=== PATIENT | male | born 1950 | race Caucasian/White ===

== ENCOUNTER 2018-03-25 14:38 | Emergency (ER) | payer MEDICARE, OTHER ==
[~2018-03-25] VITALS: Ht 175.3 cm; Wt 109.0 kg
[~2018-03-25 14:38] MED LIST: ALFU10TA10 PO; DULO-31 PO; HCTZ PO; IPRA3AMP9 NEB; LORA0.5T PO; OXYCODONE PO; PRAV40TA3 PO; Symbicort INH; lutein PO; seroquel PO; vitamin D PO
[2018-03-25 14:41] VITALS: BP 140/80
[2018-03-25] MEDS ORDERED: TRAM50TA2 PO (14:58)
== END 2018-03-25 16:20 | disposition home or self-care (01) ==
LOC: ER 14:38
DX: M25.511 Pain in right shoulder (principal); J44.9 Chronic obstructive pulmonary disease, unspecified; Z88.0 Allergy status to penicillin; Z79.899 Other long term (current) drug therapy
CPT/HCPCS: 73030; 99284

== ENCOUNTER 2019-02-07 11:22 | Inpatient (IN) | payer MEDICARE, OTHER ==
[~2019-02-07] VITALS: Ht 172.7 cm; Wt 118.2 kg
[2019-02-07] MEDS ORDERED: enoxaparin 100mg/ml syringe SUBCUT ONE (12:30)
[2019-02-07 12:47] LABS: BASOPHILS # (AUTO) 0.1 X10'3 (0-0.2); BASOPHILS % (AUTO) 1.1 % (0-1); EOSINOPHILS % (AUTO) 12.7 % (0-6); HEMATOCRIT 42.5 % (42.0-52.0); HEMOGLOBIN 14.5 g/dl (14.0-17.9); LYMPHOCYTES # (AUTO) 1.3 X10'3 (1.1-4.8); LYMPHOCYTES % (AUTO) 16.2 % (21-51); MEAN CORPUSCULAR HEMOGLOBIN 32.5 PG (27.0-31.0); MEAN CORPUSCULAR HGB CONC 34.1 g/dL (33.0-36.5); MEAN CORPUSCULAR VOLUME 95.5 FL (78-98); MEAN PLATELET VOLUME 6.7 FL (7.4-10.4); MONOCYTES # (AUTO) 0.7 X10'3 (0-0.9); MONOCYTES % (AUTO) 9.2 % (2-12); NEUTROPHILS # (AUTO) 4.7 X10'3 (1.8-7.7); NEUTROPHILS % (AUTO) 60.8 % (42-75); PLATELET COUNT 314 X10'3 (140-440); RED BLOOD COUNT 4.45 X10'6 (4.70-6.10); RED CELL DISTRIBUTION WIDTH 14.6 % (11.5-14.5); WHITE BLOOD COUNT 7.8 X10'3 (4.5-11.0)
[2019-02-07 13:02] LABS: ALANINE AMINOTRANSFERASE 19 U/L (12-78); ALBUMIN 3.5 G/DL (3.4-5.0); ALBUMIN/GLOBULIN RATIO 1.1 (1.1-1.5); ALKALINE PHOSPHATASE 76 IU/L (46-116); ANION GAP 6 (8-16); ASPARTATE AMINO TRANSFERASE 17 U/L (10-37); BILIRUBIN,TOTAL 0.7 MG/DL (0.1-1.0); BLOOD UREA NITROGEN 21 MG/DL (7-18); BUN/CREATININE RATIO 14.8 (5.4-32.0); CALCIUM 8.9 MG/DL (8.5-10.1); CHLORIDE 109 MMOL/L (99-107); CREATININE 1.42 MG/DL (0.60-1.10); GLUCOSE 92 MG/DL (70-104); POTASSIUM 4.3 MMOL/L (3.5-5.1); SODIUM 143 MMOL/L (135-145); TOTAL CARBON DIOXIDE 27.6 MMOL/L (24-32); TOTAL PROTEIN 6.6 G/DL (6.4-8.2); eGFR 49 ML/MIN
--- NOTE | 2019-02-07 13:09 | NUR ---
WAITING FOR PTT TO RESULT FOR LOVENOX
[2019-02-07 13:18] LABS: PARTIAL THROMBOPLASTIN TIME 27 SECONDS (22-32)
[2019-02-07] MEDS ORDERED: iohexol 350MG/ML 100ml bottle IV ONE (13:33)
[2019-02-07] MEDS ORDERED: HYDROcodone/acetaminophen 5mg/325mg tablet PO ONE (14:15)
[2019-02-07] MEDS ORDERED: ondansetron 4mg rapidly disintigrating tab PO ONE (14:15)
[2019-02-07] MEDS ORDERED: magnesium Cl slow-release 64mg tablet PO PRN (14:25)
[2019-02-07] MEDS ORDERED: magnesium 4gm in 100ml NS 100 ML IV PRN (14:25)
[2019-02-07] MEDS ORDERED: mag hydrox/Alum hydrox/simeth 30ml oral suspension PO PRN (14:25)
[2019-02-07] MEDS ORDERED: ondansetron/PF 4mg/2ml inj IV PRN (14:25)
[2019-02-07] MEDS ORDERED: acetaminophen 325mg tablet PO PRN (14:25)
[2019-02-07] MEDS ORDERED: magnesium 2GM in 50ml NS 50 ML IV PRN (14:25)
[2019-02-07] MEDS ORDERED: magnesium hydroxide 30ml (MOM) UD suspension PO PRN (14:25)
[2019-02-07] MEDS ORDERED: potassium Cl 20 mEq SR tablet PO PRN ×2 (14:25)
[2019-02-07] MEDS ORDERED: potassium CL 10mEq/100ml bag 100 ML IV PRN ×2 (14:25)
[2019-02-07] MEDS ORDERED: morphine 2 MG/ML inj. syringe IV PRN (14:25)
[2019-02-07] MEDS ORDERED: nicotine 21mg patch - 24 hr TD ONE (14:30)
[2019-02-07] MEDS ORDERED: TROS20TA4 PO (15:47)
[2019-02-07] MEDS ORDERED: IPRA3AMP9 NEB (15:47)
[2019-02-07] MEDS ORDERED: CLON0.1T PO (15:47)
[2019-02-07] MEDS ORDERED: GABA-530 PO (15:47)
[2019-02-07] MEDS ORDERED: BUPR1PAT TOP (15:47)
[2019-02-07] MEDS ORDERED: PRAV40TA3 PO (15:47)
[2019-02-07] MEDS ORDERED: TIOT4MIS5 INH (15:47)
[2019-02-07] MEDS ORDERED: QUET400T12 PO (15:47)
[2019-02-07] MEDS ORDERED: LORA-269 PO (15:47)
[2019-02-07] MEDS ORDERED: DULO60CA65 PO (15:47)
[2019-02-07] MEDS ORDERED: SPIR25TA5 PO (15:47)
[2019-02-07] MEDS ORDERED: LIDO700A47 TD (15:47)
--- NOTE | 2019-02-07 16:11 | NUR ---
Paged Dr. Garvey asking if he wants this patient to be on heparin protocol.
--- NOTE | 2019-02-07 16:26 | NUR ---
Dr. Garvey called back, he said not to start Heparin drip but continue Lovenox that was already started at ER. He asked me to consult pharmacist for dosing and that he wanted it q12hrs. I talked to the pharmacist about this, he said he will put an order for Lovenox 120mg SQ q12hrs
[2019-02-07 16:30] VITALS: BP 147/83
--- NOTE | 2019-02-07 17:32 | NUR ---
Patient requesting to have his home meds resume. Paged Dr. Garvey to have him review the home meds
--- NOTE | 2019-02-07 18:45 | NUR ---
Patient in room [facility]. I have received report from Hiral ERNST and had the opportunity to ask questions and assume patient care. Patient sitting in bed with visitor at bedside. Will continue to monitor.
--- NOTE | 2019-02-07 18:50 | NUR ---
Problems reprioritized. Patient report given, questions answered & plan of care reviewed with Daisy ERNST.
[2019-02-07 19:00] VITALS: BP 143/71
[2019-02-07] MEDS ORDERED: LIDOcaine 5% patch TP PRN (19:45)
[2019-02-07] MEDS ORDERED: cloNIDine 0.1 mg tablet PO PRN (19:45)
[2019-02-07] MEDS ORDERED: ipratropium/albuterol 3ml nebule NEB PRN (19:50)
[2019-02-07] MEDS: normal saline 1000ml 1,000 ML IV SCH (20:10)
[2019-02-07] MEDS: enoxaparin 60mg/0.6ml syringe SUBCUT SCH (20:10)
[2019-02-07] MEDS: morphine 2 MG/ML inj. syringe IV PRN (20:11)
--- NOTE | 2019-02-07 21:00 | NUR ---
Discussed with Dr. Elias that the patient is on Subutex at home that he took off yesterday. Patient has morphine and norco ordered and received morphine. Requested advice and received order for Subutex to be discontinued. Patient also states that he takes 3 mg of Ativan at bedtime. Received order for Ativan [address] Elias. Will continue to monitor.
[2019-02-07] MEDS: ipratropium/albuterol 3ml nebule NEB SCH (21:04)
[2019-02-07] MEDS: budesonide 0.5mg/2ml UD nebule IH SCH (21:05)
[2019-02-07] MEDS: pravastatin 40mg tablet PO SCH (21:41)
[2019-02-07] MEDS: quetiapine 100mg tablet PO SCH (21:42)
[2019-02-07] MEDS: gabapentin 100mg capsule PO SCH (23:11)
[2019-02-07] MEDS: LORazepam 1 MG tablet PO SCH (23:12)
[2019-02-08] VITALS: BP 126/66
[2019-02-08 05:26] LABS: BASOPHILS # (AUTO) 0.1 X10'3 (0-0.2); BASOPHILS % (AUTO) 0.8 % (0-1); EOSINOPHILS # (AUTO) 1.1 X10'3 (0-0.9); EOSINOPHILS % (AUTO) 11.7 % (0-6); HEMOGLOBIN 13.7 g/dl (14.0-17.9); LYMPHOCYTES # (AUTO) 1.9 X10'3 (1.1-4.8); LYMPHOCYTES % (AUTO) 20.5 % (21-51); MEAN CORPUSCULAR HEMOGLOBIN 32.7 PG (27.0-31.0); MEAN CORPUSCULAR HGB CONC 34.2 g/dL (33.0-36.5); MEAN CORPUSCULAR VOLUME 95.6 FL (78-98); MONOCYTES # (AUTO) 0.8 X10'3 (0-0.9); MONOCYTES % (AUTO) 8.6 % (2-12); NEUTROPHILS # (AUTO) 5.4 X10'3 (1.8-7.7); NEUTROPHILS % (AUTO) 58.4 % (42-75); PLATELET COUNT 302 X10'3 (140-440); RED BLOOD COUNT 4.18 X10'6 (4.70-6.10); WHITE BLOOD COUNT 9.3 X10'3 (4.5-11.0)
[2019-02-08] MEDS: normal saline 1000ml 1,000 ML IV SCH ×2 (05:47→15:59)
[2019-02-08] MEDS: morphine 2 MG/ML inj. syringe IV PRN ×3 (05:52→18:35)
[2019-02-08 06:15] LABS: ALBUMIN 2.8 G/DL (3.4-5.0); ANION GAP 8 (8-16); BLOOD UREA NITROGEN 19 MG/DL (7-18); BUN/CREATININE RATIO 14.6 (5.4-32.0); CALCIUM 8.5 MG/DL (8.5-10.1); CHLORIDE 111 MMOL/L (99-107); GLUCOSE 87 MG/DL (70-104); MAGNESIUM 2.2 MG/DL (1.5-2.4); SODIUM 145 MMOL/L (135-145); eGFR 55 ML/MIN
--- NOTE | 2019-02-08 06:32 | NUR ---
Problems reprioritized. Patient report given, questions answered & plan of care reviewed with Nena RN. Patient resting eyes closed respirations even.
[2019-02-08] MEDS: budesonide 0.5mg/2ml UD nebule IH SCH ×2 (07:09→20:29)
[2019-02-08] MEDS: ipratropium/albuterol 3ml nebule NEB SCH ×3 (07:09→20:29)
[2019-02-08 07:10] VITALS: BP 129/72
[2019-02-08] MEDS: K and/or MAG REPLACEMENT MC SCH (08:00)
[2019-02-08] MEDS: quetiapine 100mg tablet PO SCH ×2 (08:00→20:19)
[2019-02-08] MEDS: duloxetine 30mg CAPSULE.DR PO SCH (08:41)
[2019-02-08] MEDS: gabapentin 100mg capsule PO SCH ×2 (08:41→15:59)
[2019-02-08] MEDS: enoxaparin 60mg/0.6ml syringe SUBCUT SCH (08:42)
[2019-02-08] MEDS: LORazepam 1 MG tablet PO PRN ×2 (08:45→15:59)
[2019-02-08 11:50] VITALS: BP 117/71
[2019-02-08] MEDS: HYDROcodone/acetaminophen 5mg/325mg tablet PO PRN (12:13)
[2019-02-08 18:00] VITALS: BP 127/66
--- NOTE | 2019-02-08 18:31 | NUR ---
Problems reprioritized. Patient report given, questions answered & plan of care reviewed with SUJATA Goel and SUJATA Blanca.
--- NOTE | 2019-02-08 18:32 | NUR ---
Patient in room [facility]. I have received report from SUJATA Barrett and had the opportunity to ask questions and assume patient care.
[2019-02-08] MEDS: LORazepam 1 MG tablet PO SCH (20:19)
[2019-02-08] MEDS: pravastatin 40mg tablet PO SCH (20:19)
[2019-02-08] MEDS: apixaban 5mg tablet PO SCH (20:20)
[2019-02-09 00:12] VITALS: BP 110/59
[2019-02-09] MEDS: normal saline 1000ml 1,000 ML IV SCH ×2 (01:49→11:50)
[2019-02-09] MEDS: morphine 2 MG/ML inj. syringe IV PRN (05:03)
[2019-02-09 05:50] LABS: BASOPHILS # (AUTO) 0.1 X10'3 (0-0.2); BASOPHILS % (AUTO) 0.8 % (0-1); EOSINOPHILS # (AUTO) 0.9 X10'3 (0-0.9); EOSINOPHILS % (AUTO) 9.7 % (0-6); HEMATOCRIT 38.8 % (42.0-52.0); HEMOGLOBIN 13.1 g/dl (14.0-17.9); LYMPHOCYTES # (AUTO) 1.8 X10'3 (1.1-4.8); LYMPHOCYTES % (AUTO) 20.6 % (21-51); MEAN CORPUSCULAR HEMOGLOBIN 32.5 PG (27.0-31.0); MEAN CORPUSCULAR HGB CONC 33.9 g/dL (33.0-36.5); MEAN CORPUSCULAR VOLUME 96.1 FL (78-98); MONOCYTES # (AUTO) 0.9 X10'3 (0-0.9); NEUTROPHILS # (AUTO) 5.2 X10'3 (1.8-7.7); NEUTROPHILS % (AUTO) 58.9 % (42-75); PLATELET COUNT 306 X10'3 (140-440); RED BLOOD COUNT 4.04 X10'6 (4.70-6.10); RED CELL DISTRIBUTION WIDTH 14.6 % (11.5-14.5); WHITE BLOOD COUNT 8.8 X10'3 (4.5-11.0)
[2019-02-09 06:14] LABS: ALBUMIN 2.8 G/DL (3.4-5.0); ANION GAP 9 (8-16); BLOOD UREA NITROGEN 15 MG/DL (7-18); BUN/CREATININE RATIO 13.5 (5.4-32.0); CALCIUM 9.3 MG/DL (8.5-10.1); CHLORIDE 110 MMOL/L (99-107); CHOL/HDL RATIO 3.3 (0.00-4.99); CHOLESTEROL 143 MG/DL (0-200); CREATININE 1.11 MG/DL (0.60-1.10); GLUCOSE 90 MG/DL (70-104); HDL CHOLESTEROL 44 MG/DL (35-60); LDL CHOLESTEROL 86 MG/DL (50-100); MAGNESIUM 2.2 MG/DL (1.5-2.4); SODIUM 143 MMOL/L (135-145); TOTAL CARBON DIOXIDE 24.2 MMOL/L (24-32); TRIGLYCERIDES 117 MG/DL (20-135); eGFR 66 ML/MIN
--- NOTE | 2019-02-09 06:30 | NUR ---
Problems reprioritized. Patient report given, questions answered & plan of care reviewed with SUJATA Adams.
[2019-02-09 07:00] VITALS: BP 134/71
--- NOTE | 2019-02-09 07:26 | NUR ---
Patient in room [facility]. I have received report from Amando ERNST and had the opportunity to ask questions and assume patient care.
[2019-02-09] MEDS: apixaban 5mg tablet PO SCH (07:37)
[2019-02-09] MEDS: duloxetine 30mg CAPSULE.DR PO SCH (07:37)
[2019-02-09] MEDS: gabapentin 100mg capsule PO SCH ×2 (07:42)
[2019-02-09] MEDS: quetiapine 100mg tablet PO SCH (07:44)
[2019-02-09] MEDS: LORazepam 1 MG tablet PO PRN (07:48)
[2019-02-09] MEDS: K and/or MAG REPLACEMENT MC SCH (08:00)
[2019-02-09] MEDS: budesonide 0.5mg/2ml UD nebule IH SCH (08:11)
[2019-02-09] MEDS: ipratropium/albuterol 3ml nebule NEB SCH (08:11)
[2019-02-09] MEDS: HYDROcodone/acetaminophen 5mg/325mg tablet PO PRN (09:11)
[2019-02-09 11:00] VITALS: BP 123/58
[2019-02-09] MEDS ORDERED: APIX5TAB3 PO (12:03)
--- NOTE | 2019-02-09 12:39 | NUR ---
Patient is discharged on nursing end, eating lunch currently. Medications called into [facility]. [facility]. Patient acknowledged with understanding on all teaching and knows when next doses for medications at home. Patient states that he has his own oxygen in his truck that he will be using on discharge.
--- NOTE | 2019-02-09 13:15 | NUR ---
patient seen by DR Arias appears stable for DC. Taking prescription with him to [facility] tomorrow 02/10/19. see above note.
--- NOTE | 2019-02-09 13:30 | NUR ---
patient dc home driving himself in truck appears to be in stable condition
== END 2019-02-09 13:50 | disposition home or self-care (01) | DRG 682 ==
LOC: ER 11:22 → SUR 3N 15:53
PROVIDERS: ADMIT Hospitalist; ATTEND Family Medicine
PROC: B32T1ZZ Computerized Tomography (CT Scan) of Left Pulmonary Artery using Low Osmolar Contrast (ICD-10-PCS; principal; 2019-02-07)
PROC: B3201ZZ Computerized Tomography (CT Scan) of Thoracic Aorta using Low Osmolar Contrast (ICD-10-PCS; 2019-02-07)
PROC: B32S1ZZ Computerized Tomography (CT Scan) of Right Pulmonary Artery using Low Osmolar Contrast (ICD-10-PCS; 2019-02-07)
DX: N17.0 Acute kidney failure with tubular necrosis (principal); I26.99 Other pulmonary embolism without acute cor pulmonale; I82.412 Acute embolism and thrombosis of left femoral vein; J96.10 Chronic respiratory failure, unspecified whether with hypoxia or hypercapnia; F17.210 Nicotine dependence, cigarettes, uncomplicated; N40.0 Benign prostatic hyperplasia without lower urinary tract symptoms; I10 Essential (primary) hypertension; J43.9 Emphysema, unspecified; E86.0 Dehydration; E78.5 Hyperlipidemia, unspecified; F41.9 Anxiety disorder, unspecified; Z79.01 Long term (current) use of anticoagulants; Z88.0 Allergy status to penicillin; Z86.718 Personal history of other venous thrombosis and embolism; Z71.6 Tobacco abuse counseling; Z99.81 Dependence on supplemental oxygen
CPT/HCPCS: 36415; 71045; 71275; 80048; 80053; 80061; 83735; 83880; 84484; 85025; 85610; 85730; 87081; 93005; 93306; 94640; 94760; 96372; 99285; G0378; J1650; J2270; J7030; J7626; Q9967